=== PATIENT | female | born 1950 | race Two or more races ===

== ENCOUNTER → 2022-12-11 | Day surgery (SDC) | payer OTHER ==
[~2022-12-11] VITALS: Ht 157.5 cm; Wt 59.1 kg
[~2022-12-11] MED LIST: ALBU18HF12 IH; ALBUTEROL SULFATE 2.5 MG/0.5 ML NEB SOLUTION NEB ONE; BECL10.62 PO; BENZOCAINE 20% 50 MCG/SPRAY 57 GM TP ONE; FentaNYL CITRATE PF 100 MCG/2 ML VIAL ONE; LIDOCAINE 2% 11 ML JELLY TP ONE; LIDOCAINE 4% 50 ML SOLUTION TP ONE; MIDAZOLAM HCL 2 MG/2 ML VIAL ONE; MONT-40 PO; MethylPREDNISolone SOD SUCC 125 MG/2 ML VIAL IVP ONE; MethylPREDNISolone SOD SUCC 125 MG/2 ML VIAL ONE; PRED-729 PO; PROMETHAZINE HCL/CODEINE 6.25-10MG/5ML SOLUTION UDCUP PO ONE; SODIUM CHLORIDE 0.9% 1,000 ML IV ONE; SODIUM CHLORIDE 0.9% 1,000 ML ONE; TELM20TA8 PO
[2022-12-11 09:00] VITALS: PULSE 72; RESP 15; O2SAT 100
== END | disposition still patient (30) ==
LOC: SURGERY 06:31
PROVIDERS: ATTEND Internal Medicine Critical Care Medicine
DX: J38.4 Edema of larynx (principal); B37.0 Candidal stomatitis; Z98.890 Other specified postprocedural states; I10 Essential (primary) hypertension; Z87.01 Personal history of pneumonia (recurrent); Z79.899 Other long term (current) drug therapy; M19.90 Unspecified osteoarthritis, unspecified site
CPT/HCPCS: 31623; 87206; 87101; 87220; 87070; 88108; 31624; 94640; 71045; 87015; J3010; J2250; J2930; Q9967; J7030; J7613; Z7610